=== PATIENT | male | born 1955 | race Caucasian/White ===

== ENCOUNTER 2022-09-21 18:49 | Emergency (ER) | payer OTHER ==
[~2022-09-21] VITALS: Ht 180.3 cm; Wt 115.7 kg
[2022-09-21] MEDS ORDERED: VENTOLIN HFA18 GM INH (19:06)
[2022-09-21] MEDS ORDERED: QVAR REDIHALE10.6 GM INH (19:06)
--- OUTSIDE RECORDS SUMMARY | 2022-09-21 20:02 | XMS ---
PreManage Notification: PRIYA FLORES [employer] Events No recent Security Events currently on file CRITERIA MET - [facility] - 2 Visits in 30 Days CARE PROVIDERS EMILY REED [facility] Current PHONE: [phone] BRETT MCRAE [facility] Current MEDICAL [facility] INTERNAL MEDICINE-[facility]ILDA PHONE: Unknown Corinna has no Care Guidelines for this patient. Riki VISIT COUNT (12 MO.) [address] [place] [address] TOTAL 5 NOTE: Visits indicate total known visits. ED/UCC VISIT TRACKING (12 MO.) 09/21/2022 18:[address] [facility] TYPE: Emergency COMPLAINT: - COPD [facility]22 12[facility] DIAGNOSES: - EMS - Chest Pain - Chronic obstructive pulmonary disease with (acute) exacerbation 08/10/2022 22:37 [facility]: Emergency DIAGNOSES: - Shortness of Breath - SOB - Cough - Pneumonia, unspecified organism - Wheezing - Chronic obstructive pulmonary disease with (acute) exacerbation 04/17/2022 07:33 [facility] TYPE: Emergency DIAGNOSES: - sob chest discomfort at night last 3 nights - Acute cough - Other chest pain - Shortness of Breath - Chest Tightness 11/16/2021 20:31 [facility] TYPE: Emergency DIAGNOSES: - cough - Bronchitis, not specified as acute or chronic - Chronic obstructive pulmonary disease with (acute) exacerbation INPATIENT VISIT TRACKING (12 MO.) No inpatient visits to display in this time frame [email or web address]
[2022-09-21] MEDS ORDERED: PREDNISONE20 MG PO (20:16)
--- NOTE | 2022-09-23 18:49 | EKG ---
[facility] [address] [place], [place] [address] Signed Normal sinus rhythm Low voltage QRS Cannot rule out Anteroseptal infarct , age undetermined Abnormal ECG No previous ECGs available Confirmed by WILLI PRABHAKAR MD ([id number] on 09/23/2022 6:48:56 PM Electronically Signed By: WILLI PRABHAKAR MD 09/23/22 1849 PATIENT NAME: PRIYA FLORES VIRGIE Electrocardiogram DATE OF : 57 PHYSICIAN: WILLI PRABHAKAR MD REPORT #: [id number] REPORT IS CONFIDENTIAL AND NOT TO BE RELEASED WITHOUT AUTHORIZATION
== END 2022-09-21 20:51 | disposition home or self-care (01) ==
LOC: ED 18:49
DX: J43.9 Emphysema, unspecified (principal); I10 Essential (primary) hypertension; Z88.5 Allergy status to narcotic agent; Z79.899 Other long term (current) drug therapy; Z20.822 Contact with and (suspected) exposure to COVID-19
CPT/HCPCS: 36415; 71045; 80053; 83880; 84484; 85025; 87502; 93005; 93010; 94640; 96374; 99285-25; 99406; C9803; J2930; U0003